=== PATIENT | male | born 1955 | race American Indian/Alaskan Native ===

== ENCOUNTER 2018-11-19 07:42 | Emergency (ER) | payer BC, OTHER ==
[2018-11-19 07:46] VITALS: BP 152/91
[2018-11-19] MEDS ORDERED: DECADRON IM ONE (08:27)
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
== END 2018-11-19 08:45 | disposition home or self-care (01) ==
LOC: ED 07:42
DX: M10.9 Gout, unspecified (principal); I10 Essential (primary) hypertension; Z91.14 Patient's other noncompliance with medication regimen; Z98.890 Other specified postprocedural states
CPT/HCPCS: 96372; 99282; J1100

== ENCOUNTER 2019-03-10 09:11 | Emergency (ER) | payer OTHER ==
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
[2019-03-10] MEDS ORDERED: NORCO 5/325 PO ONE (11:13)
[2019-03-10] MEDS ORDERED: FLEXERIL PO ONE (11:13)
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
[2019-03-10 13:21] VITALS: BP 149/79
== END 2019-03-10 13:21 | disposition home or self-care (01) ==
LOC: ED 09:11
DX: M79.10 Myalgia, unspecified site (principal); R42 Dizziness and giddiness; V59.9XXA Occupant (driver) (passenger) of pick-up truck or van injured in unspecified traffic accident, initial encounter; Y93.89 Activity, other specified; Y92.410 Unspecified street and highway as the place of occurrence of the external cause; Y99.8 Other external cause status
CPT/HCPCS: 72170

== ENCOUNTER 2020-02-19 12:37 | Emergency (ER) | payer OTHER ==
--- NOTE | 2020-02-19 14:14 | Emergency Department Report ---
Blank Doc - Documentation Documentation: 64-year-old male that presents with bilateral leg swelling. Exam: pitting edema to bilateral lower legs. This initial assessment/diagnostic orders/clinical plan/treatment(s) is/are subject to change based on patient's health status, clinical progression and re- assessment by fellow clinical providers in the ED. Further treatment and workup at subsequent clinical providers discretion. Patient/guardians urged not to elope from the ED as their condition may be serious if not clinically assessed and managed. Initial orders include: 1- Patient sent to [facility] for further evaluation and treatment 2- cardiac workup r/o CHF
--- NOTE | 2020-02-19 15:06 | XRay Report ---
CHEST 2 VIEWS INDICATION / CLINICAL INFORMATION: Chest Pain. COMPARISON: 03/10/2019. FINDINGS: SUPPORT DEVICES: None. HEART / MEDIASTINUM: No significant abnormality. LUNGS / PLEURA: No significant pulmonary or pleural abnormality. No pneumothorax or pleural effusion. ADDITIONAL FINDINGS: No significant additional findings. IMPRESSION: 1. No acute findings. Signer Name: Lee Kuhn MD Signed: 02/19/2020 3:01 PM Workstation Name: [id number]
[2020-02-19 15:14] LABS: Basophils # (Auto) 0.1 K/mm3 (0.0-0.1); Basophils % (Auto) 0.8 % (0.0-1.8); Eosinophils # (Auto) 0.1 K/mm3 (0.0-0.4); Eosinophils % (Auto) 0.7 % (0.0-4.3); Hemoglobin 11.3 gm/dl (11.8-15.2); Lymphocytes # (Auto) 2.8 K/mm3 (1.2-5.4); Lymphocytes % (Auto) 36.4 % (13.4-35.0); Mean Corpuscular HGB Conc 34 % (32-34); Mean Corpuscular Volume 106 fl (84-94); Monocytes % (Auto) 12.7 % (0.0-7.3); Platelet Count 123 K/mm3 (140-440); Red Blood Count 3.13 M/mm3 (3.65-5.03); Red Cell Distribution Width 13.6 % (13.2-15.2)
[2020-02-19 15:25] LABS: INR 1.48 (0.87-1.13)
[2020-02-19 15:26] LABS: Partial Thromboplastin Time 39.8 Sec. (24.2-36.6)
[2020-02-19 15:32] LABS: Alanine Aminotransferase 54 units/L (7-56); Albumin 2.5 g/dL (3.9-5); Blood Urea Nitrogen 11 mg/dL (9-20); Calcium 8.7 mg/dL (8.4-10.2); Hemolysis Index 6
[2020-02-19 15:36] LABS: BUN/Creatinine Ratio 16
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
[2020-02-20 00:23] VITALS: BP 171/86
== END 2020-02-19 21:05 | disposition home or self-care (01) ==
LOC: ED 12:37
DX: K70.30 Alcoholic cirrhosis of liver without ascites (principal); R60.0 Localized edema; I10 Essential (primary) hypertension; M10.9 Gout, unspecified; Z79.899 Other long term (current) drug therapy; Z98.890 Other specified postprocedural states
CPT/HCPCS: 36415; 71046; 80053; 83880; 84484; 85025; 85610; 85730

== ENCOUNTER 2021-05-25 09:24 | Outpatient (CLI) | payer OTHER ==
--- NOTE | 2021-05-25 10:31 | XRay Report ---
LEFT KNEE 3 VIEWS INDICATION: LEFT KNEE PAIN. COMPARISON: None. IMPRESSION: No acute osseous or soft tissue abnormality. Moderate osteoarthritic changes are iden tified in the medial compartment. Signer Name: Shwan Palacios Jr, MD Signed: 05/25/2021 10:27 AM Workstation Name: [id number]
== END 2021-05-25 09:25 | disposition home or self-care (01) ==
LOC: XRAY 09:24
PROVIDERS: ATTEND Internal Medicine
DX: Z02.71 Encounter for disability determination (principal); M17.12 Unilateral primary osteoarthritis, left knee; M25.562 Pain in left knee